=== PATIENT | female | born 1960 | race Caucasian/White ===

== ENCOUNTER 2025-08-28 06:49 | Inpatient (IN) ==
[2025-08-22 12:38] LABS: Basophils # (Auto) 0.02 K/mcL (0.00-0.30); Basophils % (Auto) 0.4 % (0.0-2.0); Eosinophils # (Auto) 0.14 K/mcL (0.00-0.70); Eosinophils % (Auto) 2.6 % (0.0-7.0); Hematocrit 36.4 % (34.1-44.9); Hemoglobin 11.3 g/dL (11.2-15.7); Lymphocytes # (Auto) 0.69 K/mcL (1.50-4.80); Lymphocytes % (Auto) 12.8 % (15.5-49.0); Mean Corpuscular HGB Conc 31.0 g/dL (31.0-36.0); Monocytes # (Auto) 0.60 K/mcL (0.10-0.90); Monocytes % (Auto) 11.2 % (1.0-12.0); Neutrophils % (Auto) 72.8 % (38.0-78.0); Platelet Count 139 K/mcL (140-440); RBC 3.91 M/mcL (3.59-5.38); WBC 5.4 K/mcL (4.5-11.0)
[2025-08-22 12:43] LABS: ALT/SGPT 9 U/L (<40); AST/SGOT 24 U/L (<32); Albumin 4.1 gm/dL (3.2-5.2); Albumin/Globulin Ratio 1.4 (1.0-2.3); Alkaline Phosphatase 113 U/L (39-117); Anion Gap 12.0 (8.0-16.0); Bilirubin,Total 0.7 mg/dL (0.1-1.0); Blood Urea Nitrogen 8 mg/dL (8-23); Calcium 9.2 mg/dL (8.6-10.4); Carbon Dioxide 32 mmol/L (22-30); Chloride 96 mmol/L (96-108); Globulin 3.0 gm/dL (2.2-3.7); Glucose 84 mg/dL (70-105); Potassium 3.3 mmol/L (3.3-5.1); Sodium 140 mmol/L (133-145)
[2025-08-22 12:44] LABS: INR 1.0 (0.9-1.1); Prothrombin Time 13.8 sec (11.9-14.5)
[2025-08-22 14:56] LABS: Estimated Average Glucose(eAG) 117 mg/dL; Hemoglobin A1C 5.7 % Hgb (4.0-6.0)
[2025-08-28 07:48] LABS: POC Blood Urea Nitrogen 23.0 (6-20); POC CO2 28.0 (22-30); POC Calcium, Ionized 1.11 (1.16-1.32); POC Glucose, Random 72.0 (70-105)
[2025-08-28] MEDS: ceFAZolin 2 GM in DEXTROSE 5% IN WATER 50 ML IV SCH (08:02)
[2025-08-28] MEDS ORDERED: fentaNYL 100 MCG/2 ML VIAL ONE (08:16)
[2025-08-28] MEDS ORDERED: LIDOCAINE 2% PF 5 ML VIAL ONE (08:17)
[2025-08-28] MEDS ORDERED: DEXAMETHASONE 10 MG/ML VIAL ONE (08:17)
[2025-08-28] MEDS ORDERED: PROPOFOL 200 MG/20 ML VIAL IV ONE (08:17)
[2025-08-28] MEDS ORDERED: ROCURONIUM 10 MG/ML ML IV ONE ×2 (08:17→09:45)
[2025-08-28] MEDS ORDERED: ONDANSETRON 4 MG/2 ML VIAL ONE (08:17)
[2025-08-28] MEDS ORDERED: SUGAMMADEX SODIUM 200 MG/2 ML VIAL IV ONE (08:51)
[2025-08-28] MEDS ORDERED: TRANEXAMIC ACID 1,000 MG/10 ML VIAL ONE (09:23)
[2025-08-28] MEDS ORDERED: HYDROmorphone 0.5 MG/0.5 ML SYRINGE ONE (09:52)
[2025-08-28] MEDS ORDERED: ePHEDrine 50 MG/5 ML SYRINGE (ANEST) IV ONE (09:57)
[2025-08-28] MEDS ORDERED: PHENYLephrine 1 MG/10 ML SYRINGE (ANEST) ONE (09:58)
[2025-08-28] MEDS ORDERED: METHOCARBAMOL 1,000 MG/10 ML VIAL IV PRN (10:27)
[2025-08-28] MEDS ORDERED: IPRATROPIUM/ALBUTEROL 3 ML AMPUL.NEB NEB PRN (10:27)
[2025-08-28] MEDS ORDERED: LACTATED RINGERS 250 ML IV PRN (10:27)
[2025-08-28] MEDS ORDERED: diphenhydrAMINE 50 MG/ML VIAL IV PRN (10:27)
[2025-08-28] MEDS ORDERED: MEPERIDINE 25 MG/ML VIAL IV PRN (10:27)
[2025-08-28] MEDS ORDERED: NALOXONE HCL 0.4 MG/ML VIAL IV PRN (10:27)
[2025-08-28] MEDS ORDERED: fentaNYL 100 MCG/2 ML VIAL IV PRN (10:27)
[2025-08-28] MEDS ORDERED: VASOPRESSIN 20 UNIT/ML VIAL ONE (10:30)
[2025-08-28] MEDS: THROMBIN (BOVINE) 5,000 UNIT VIAL TOPICAL ONE (10:40)
[2025-08-28] MEDS: ACETAMINOPHEN 1,000 MG/100 ML BAG IV ONE (11:15)
[2025-08-28] MEDS: ONDANSETRON 4 MG/2 ML VIAL IV PRN (11:20)
[2025-08-28 12:58] LABS: Hematocrit 27.5 % (34.1-44.9); Hemoglobin 8.3 g/dL (11.2-15.7)
[2025-08-28] MEDS: LACTATED RINGERS 1,000 ML IV SCH (13:02)
[2025-08-28] MEDS: 0.9 % SODIUM CHLORIDE 250 ML IV SCH (13:03)
[2025-08-28] MEDS ORDERED: DEXTROSE 31 GM ORAL.SUSP PO PRN (13:47)
[2025-08-28] MEDS ORDERED: DEXTROSE 50% 50 ML VIAL IV PRN (13:47)
[2025-08-28] MEDS: 0.9 % SODIUM CHLORIDE 10 ML SYRINGE IV SCH (13:55)
[2025-08-28] MEDS: SCOPOLAMINE 1 PATCH PATCH TOPICAL SCH (15:06)
[2025-08-28] MEDS: 0.9 % SODIUM CHLORIDE 1,000 ML IV SCH (16:37)
[2025-08-28] MEDS: INSULIN LISPRO 1 UNIT/0.01 ML UNIT SQ SCH (16:37)
[2025-08-28] MEDS: fentaNYL 100 MCG/2 ML VIAL IV PRN (18:06)
[2025-08-28 19:07] LABS: Basophils # (Auto) 0.02 K/mcL (0.00-0.30); Basophils % (Auto) 0.2 % (0.0-2.0); Eosinophils # (Auto) 0 K/mcL (0.00-0.70); Eosinophils % (Auto) 0 % (0.0-7.0); Hematocrit 25.9 % (34.1-44.9); Hemoglobin 8.1 g/dL (11.2-15.7); Lymphocytes # (Auto) 0.98 K/mcL (1.50-4.80); Lymphocytes % (Auto) 9.3 % (15.5-49.0); Mean Corpuscular HGB Conc 31.3 g/dL (31.0-36.0); Monocytes # (Auto) 0.45 K/mcL (0.10-0.90); Monocytes % (Auto) 4.3 % (1.0-12.0); Neutrophils % (Auto) 85.5 % (38.0-78.0); Platelet Count 155 K/mcL (140-440); RBC 2.79 M/mcL (3.59-5.38); WBC 10.5 K/mcL (4.5-11.0)
[2025-08-29] MEDS: PANTOPRAZOLE 40 MG TABLET PO SCH (07:10)
[2025-08-29] MEDS: ONDANSETRON 4 MG/2 ML VIAL IV PRN (07:11)
[2025-08-29 08:23] LABS: Basophils # (Auto) 0.02 K/mcL (0.00-0.30); Basophils % (Auto) 0.2 % (0.0-2.0); Eosinophils # (Auto) 0 K/mcL (0.00-0.70); Eosinophils % (Auto) 0 % (0.0-7.0); Hematocrit 23.4 % (34.1-44.9); Hemoglobin 7.2 g/dL (11.2-15.7); Lymphocytes # (Auto) 1.00 K/mcL (1.50-4.80); Lymphocytes % (Auto) 10.1 % (15.5-49.0); Mean Corpuscular HGB Conc 30.8 g/dL (31.0-36.0); Monocytes # (Auto) 1.02 K/mcL (0.10-0.90); Monocytes % (Auto) 10.3 % (1.0-12.0); Neutrophils % (Auto) 79.1 % (38.0-78.0); Platelet Count 156 K/mcL (140-440); RBC 2.48 M/mcL (3.59-5.38); WBC 9.9 K/mcL (4.5-11.0)
[2025-08-29 08:52] LABS: ALT/SGPT 18 U/L (<40); AST/SGOT 55 U/L (<32); Albumin 3.6 gm/dL (3.2-5.2); Albumin/Globulin Ratio 1.6 (1.0-2.3); Alkaline Phosphatase 91 U/L (39-117); Anion Gap 19.0 (8.0-16.0); Bilirubin,Direct < 0.2 mg/dL (0-0.3); Bilirubin,Total 0.3 mg/dL (0.1-1.0); Blood Urea Nitrogen 38 mg/dL (8-23); Calcium 8.6 mg/dL (8.6-10.4); Carbon Dioxide 23 mmol/L (22-30); Chloride 94 mmol/L (96-108); Globulin 2.3 gm/dL (2.2-3.7); Glucose 240 mg/dL (70-105); Phosphorous 6.2 mg/dL (2.5-4.5); Potassium 5.1 mmol/L (3.3-5.1); Sodium 136 mmol/L (133-145); Triglycerides 187 mg/dL (<150); Uric Acid 7.3 mg/dL (2.5-8.0)
[2025-08-29] MEDS: ACETAMINOPHEN 1,000 MG/100 ML BAG IV SCH (08:59)
[2025-08-29] MEDS: LOSARTAN 50 MG TABLET PO SCH (09:01)
[2025-08-29] MEDS: 0.9 % SODIUM CHLORIDE 250 ML IV SCH (10:29)
[2025-08-29] MEDS: FLU VACC TS2025-26(65YR UP)/PF 180 MCG/0.5 ML SYRINGE IM ONE (15:11)
[2025-08-29] MEDS: PNEUMOCOCCAL 23-VAL P-SAC VAC 0.5 ML SYRINGE IM ONE (15:12)
[2025-08-30] MEDS ORDERED: PANTOPRAZOLE 40 MG TABLET PO SCH (07:30)
[2025-08-30 07:37] LABS: ALT/SGPT 11 U/L (<40); AST/SGOT 43 U/L (<32); Albumin 3.5 gm/dL (3.2-5.2); Albumin/Globulin Ratio 1.6 (1.0-2.3); Alkaline Phosphatase 92 U/L (39-117); Anion Gap 12.0 (8.0-16.0); Bilirubin,Direct 0.3 mg/dL (<0.3); Bilirubin,Total 0.7 mg/dL (0.1-1.0); Blood Urea Nitrogen 15 mg/dL (8-23); Calcium 8.2 mg/dL (8.6-10.4); Carbon Dioxide 26 mmol/L (22-30); Chloride 93 mmol/L (96-108); Globulin 2.2 gm/dL (2.2-3.7); Glucose 169 mg/dL (70-105); Phosphorous 3.7 mg/dL (2.5-4.5); Potassium 4.0 mmol/L (3.3-5.1); Sodium 131 mmol/L (133-145); Triglycerides 226 mg/dL (<150); Uric Acid 3.1 mg/dL (2.5-8.0)
[2025-08-30 07:48] LABS: Basophils # (Auto) 0.03 K/mcL (0.00-0.30); Basophils % (Auto) 0.5 % (0.0-2.0); Eosinophils # (Auto) 0.04 K/mcL (0.00-0.70); Eosinophils % (Auto) 0.7 % (0.0-7.0); Hematocrit 27.7 % (34.1-44.9); Hemoglobin 8.9 g/dL (11.2-15.7); Lymphocytes # (Auto) 0.67 K/mcL (1.50-4.80); Lymphocytes % (Auto) 12.0 % (15.5-49.0); Mean Corpuscular HGB Conc 32.1 g/dL (31.0-36.0); Monocytes # (Auto) 0.60 K/mcL (0.10-0.90); Monocytes % (Auto) 10.8 % (1.0-12.0); Neutrophils % (Auto) 75.6 % (38.0-78.0); Platelet Count 74 K/mcL (140-440); RBC 3.11 M/mcL (3.59-5.38); WBC 5.6 K/mcL (4.5-11.0)
[2025-08-31 06:55] LABS: Basophils # (Auto) 0.02 K/mcL (0.00-0.30); Basophils % (Auto) 0.4 % (0.0-2.0); Eosinophils # (Auto) 0.09 K/mcL (0.00-0.70); Eosinophils % (Auto) 1.9 % (0.0-7.0); Hematocrit 27.8 % (34.1-44.9); Hemoglobin 8.8 g/dL (11.2-15.7); Lymphocytes # (Auto) 0.68 K/mcL (1.50-4.80); Lymphocytes % (Auto) 14.2 % (15.5-49.0); Mean Corpuscular HGB Conc 31.7 g/dL (31.0-36.0); Monocytes # (Auto) 0.44 K/mcL (0.10-0.90); Monocytes % (Auto) 9.2 % (1.0-12.0); Neutrophils % (Auto) 74.1 % (38.0-78.0); Platelet Count 58 K/mcL (140-440); RBC 3.07 M/mcL (3.59-5.38); WBC 4.8 K/mcL (4.5-11.0)
[2025-08-31 07:07] LABS: ALT/SGPT 6 U/L (<40); AST/SGOT 28 U/L (<32); Albumin 3.4 gm/dL (3.2-5.2); Albumin/Globulin Ratio 1.4 (1.0-2.3); Alkaline Phosphatase 93 U/L (39-117); Anion Gap 13.0 (8.0-16.0); Bilirubin,Direct 0.3 mg/dL (<0.3); Bilirubin,Total 0.7 mg/dL (0.1-1.0); Blood Urea Nitrogen 12 mg/dL (8-23); Calcium 8.3 mg/dL (8.6-10.4); Carbon Dioxide 25 mmol/L (22-30); Chloride 95 mmol/L (96-108); Globulin 2.4 gm/dL (2.2-3.7); Glucose 181 mg/dL (70-105); Phosphorous 3.2 mg/dL (2.5-4.5); Potassium 3.6 mmol/L (3.3-5.1); Sodium 133 mmol/L (133-145); Triglycerides 232 mg/dL (<150); Uric Acid 2.6 mg/dL (2.5-8.0)
[2025-08-31] MEDS: ACETAMINOPHEN 500 MG TABLET PO PRN (08:19)
[2025-08-31] MEDS ORDERED: ONDANSETRON 4 MG ODT TABLET SL PRN (10:15)
[2025-08-31] MEDS: ONDANSETRON 4 MG ODT TABLET SL PRN (10:25)
[2025-08-31 11:53] VITALS: TEMP 98.4; O2SAT 93
== END 2025-08-31 14:34 | disposition home or self-care (01) | DRG 414 ==
LOC: SUR 06:49 → MEDSUR 06:49
PROVIDERS: ADMIT Family Medicine Adult Medicine; ATTEND Family Medicine Adult Medicine